=== PATIENT | female | born 1995 | race Caucasian/White ===

== ENCOUNTER 2023-08-19 15:44 | Outpatient (AMB) | payer OTHER, SELFPAY ==
--- NOTE | 2023-08-19 15:51 | MHC.OFFVIS ---
Vital Signs 08/19/23 16:04 Height 5 ft Weight 165 lb BMI 32.2 Handedness Right Intake Visit Reasons: HOSPITAL CODER- xray Rt foot Intake Note: Jessica is a 28 year old female who presents today as a new patient for right foot pain. Patient reports she hit her foot on a metal spike used to hold tents down when she was walking past the tent. She expresses her pain is on top of her right foot. Occasionally she has pain with ambulation. She uses ice for relief in the moment. Allergies amoxicillin Allergy (Unknown, Verified 08/19/23 16:04) Hives HPI HPI HOSPITAL CODER- xray Rt foot: Details: Jessica is a 28 year old woman who presents with complaints of right foot pain Date of injury: 08/15/2023 She complains of pain to the top of her foot primarily when standing on the ball of her foot. She says she was walking and struck the dorsal aspect of her foot her foot against a metal peg holding the corner of a tent down. She is able to WBAT. 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 [facility] Social History (Updated 08/19/23 @ 16:08 by CARLY Gunderson) Alcohol intake: never Patient Tobacco Use Status: Never used Tobacco Current occupational status: employed Current occupation: technical support coordinator Review of Systems Const All systems reviewed & are unremarkable except as noted in HPI and below Physical Exam Vital Signs: BMI result Body Mass Index 32.2 Const General: cooperative, healthy appearing and no acute distress Orientation/consciousness: patient oriented x3 HEENT Head: Yes normocephalic and Yes atraumatic Eyes EOM: EOMs intact bilaterally Resp Effort & Inspection: normal respiratory effort and able to speak in complete sentences Cardio Jugular venous distension: no JVD Skin General skin exam: turgor normal Rashes: no rashes Neuro General: patient oriented x3 Extrem Other: Evaluation of Right foot: The patient is alert, oriented, and in no acute distress Mildly Tender over the more distal aspect of the 2nd & 3rd metatarsal shafts No tenderness over the TMT joints Good range of motion of all of the toes through flexion and extension. Good ankle range of motion without pain. She can bear weight without significant discomfort. She has some mild swelling on the dorsum of her foot. No lacerations or evidence of open injury. Radiographs: 3 views of the right foot, while WB, were taken and viewed by me today in clinic. They show no fractures or dislocations. No evidence of disruption at the MTP joints. Psych Appearance: grossly normal Affect: normal affect Attitude: cooperative Assessment & Plan Assessment & Plan (1) Right foot pain: Code(s): M79.671 - Pain in right foot Category: Medical (2) Contusion of right foot: Code(s): S90.31XA - Contusion of right foot, initial encounter Category: Medical Plan Assessment & Plan: 1. Right foot contusion, S/P kicking a tent peg with the dorsum of her foot DOI: 08/15/2023 She is doing well overall, and is able to WBAT with only mild discomfort No evidence of fractures or dislocations I recommend stiffer and more supportive footwear for the next few weeks, if possible. I offered her a stiff sole shoe and she declined, saying she will wear her own She should modify her activities as tolerated for the next few weeks, and limit or avoid any activities which cause her worsening pain She has happy with the current plan She can follow up prn Scribed for Stefanie Isbell MD by Rosales Metz, hospital medical biller, on 08/19/23 at 4:20 PM, EST. Orders: Orders XR foot RT min 3V Today M79.671 - Pain in right foot Coding Level of Care Code New Pt Level 3 (03078) Diagnoses Right foot pain M79.671 Contusion of right foot S90.31XA
[2023-08-19 16:04] VITALS: BMI 32.2
== END 2023-08-19 16:24 | disposition home or self-care (01) ==
LOC: HO.HOS 15:44
PROVIDERS: Visit Provider Orthopaedic Surgery
DX: M79.671 Pain in right foot (principal); S90.31XA Contusion of right foot, initial encounter
CPT/HCPCS: 99202

== ENCOUNTER 2023-08-19 15:44 | Outpatient (REF) | payer OTHER, SELFPAY ==
--- NOTE | ~2023-08-19 | XR_ITS ---
EXAMINATION: XR FOOT, RIGHT CLINICAL INFORMATION: Pain in right foot, weightbearing. COMPARISON: None available. TECHNIQUE: AP, lateral, and oblique views of the right foot. FINDINGS: Bone mineralization is normal. Minimal degenerative changes with joint space narrowing and hypertrophic change in the first metatarsophalangeal joint. Alignment maintained. No acute displaced fracture appreciated. XR/XR foot RT min 3V IMPRESSION: Minimal degenerative changes in the first metatarsophalangeal joint.
== END 2023-08-19 15:45 | disposition home or self-care (01) ==
LOC: HO.HOSX 15:44
PROVIDERS: Visit Provider Orthopaedic Surgery
DX: M79.671 Pain in right foot (principal); S90.31XA Contusion of right foot, initial encounter
CPT/HCPCS: 73630

== ENCOUNTER 2025-02-08 10:12 | Outpatient (REF) | payer OTHER, SELFPAY ==
--- NOTE | 2025-02-08 10:18 | EMG_ITS ---
Chief complaint: She has been having on and off bilateral hand pain and numbness, would wake up with the symptoms in the morning but can occur anytime during the day. Reason for referral: Evaluate for Carpal Tunnel Syndrome Referred by: Jonathan CM Procedure done: Bilateral upper extremities NCS/EMG Precautions and/or limitations: None The limb temperature was monitored continuously and remained between 32-36 degrees C during the performance of the NCS. Nerve Conduction Studies Anti Sensory Summary Table ?Stim Site NR Onset (ms) Norm Onset (ms) Peak (ms) Norm Peak (ms) O-P Amp (?V) Norm O-P Amp Site1 Site2 Delta-0 (ms) Dist (cm) Maurice (m/s) Norm Maurice (m/s) Left Median Anti Sensory (2nd Digit) Wrist ? 2.5 3.2 <3.6 55.2 >10 Wrist 2nd Digit 2.5 14.0 56 Right Median Anti Sensory (2nd Digit) Wrist ? 2.4 3.1 <3.6 56.5 >10 Wrist 2nd Digit 2.4 14.0 58 Left Ulnar Anti Sensory (5th Digit) Wrist ? 2.2 2.7 <3.7 22.4 >15.0 Wrist 5th Digit 2.2 14.0 64 Right Ulnar Anti Sensory (5th Digit) Wrist ? 2.3 2.8 <3.7 25.5 >15.0 Wrist 5th Digit 2.3 14.0 61 Motor Summary Table ?Stim Site NR Onset (ms) Norm Onset (ms) O-P Amp (mV) Norm O-P Amp iAmp (mV) Amp (1st) (%) Site1 Site2 Delta-0 (ms) Dist (cm) Maurice (m/s) Norm Maurice (m/s) Left Median Motor (Abd Poll Brev) Wrist ? 3.4 <3.9 10.0 >4.5 11.5 100.0 Elbow Wrist 3.2 19.0 59 >45 Elbow ? 6.6 11.0 12.7 110.0 Right Median Motor (Abd Poll Brev) Wrist ? 3.6 <3.9 9.5 >4.5 10.9 100.0 Elbow Wrist 3.3 18.0 55 >45 Elbow ? 6.9 8.5 10.2 89.5 Left Ulnar Motor (Abd Dig Minimi) Wrist ? 2.3 <3.0 7.6 >5 8.2 100.0 B Elbow Wrist 2.8 16.5 59 >45 B Elbow ? 5.1 7.0 7.7 92.1 A Elbow B Elbow 1.5 10.0 67 >45 A Elbow ? 6.6 6.8 7.6 89.5 Right Ulnar Motor (Abd Dig Minimi) Wrist ? 2.3 <3.0 8.8 >5 9.7 100.0 B Elbow Wrist 3.2 18.0 56 >45 B Elbow ? 5.5 8.5 9.6 96.6 A Elbow B Elbow 1.7 10.0 59 >45 A Elbow ? 7.2 8.1 9.5 92.0 Comparison Summary Table ?Stim Site NR Peak (ms) Norm Peak (ms) P-T Amp (?V) Site1 Site2 Delta-P (ms) Norm Delta (ms) Left Median/Radial Dig I Comparison (Digit 1 - 10cm) Median ? 2.8 <2.9 102.9 Median Radial 0.6 Radial ? 2.2 <2.8 39.2 Right Median/Radial Dig I Comparison (Digit 1 - 10cm) Median ? 2.4 <2.9 109.9 Median Radial 0.2 Radial ? 2.2 <2.8 25.3 EMG ?Side Muscle Nerve Root Ins Act Fibs Psw Amp Dur Poly Recrt Int Pat Comment Right 1stDorInt Ulnar C8-T1 Nml Nml Nml Nml Nml 0 Nml Complete Right FlexCarRad Median C6-7 Nml Nml Nml Nml Nml 0 Nml Complete Right Biceps Musculocut C5-6 Nml Nml Nml Nml Nml 0 Nml Complete Right Triceps Radial C6-7-8 Nml Nml Nml Nml Nml 0 Nml Complete Right Deltoid Axillary C5-6 Nml Nml Nml Nml Nml 0 Nml Complete Left 1stDorInt Ulnar C8-T1 Nml Nml Nml Nml Nml 0 Nml Complete Left FlexCarRad Median C6-7 Nml Nml Nml Nml Nml 0 Nml Complete Left Biceps Musculocut C5-6 Nml Nml Nml Nml Nml 0 Nml Complete Left Triceps Radial C6-7-8 Nml Nml Nml Nml Nml 0 Nml Complete Left Deltoid Axillary C5-6 Nml Nml Nml Nml Nml 0 Nml Complete FINDINGS: Interlatency difference between left median radial sensory nerves was 0.6. 0.2 on the right side. Otherwise, all other motor and sensory nerves tested showed normal latencies, amplitudes and conduction velocities. Concentric needle EMG was performed in selected muscles of the bilateral upper extremities. Study did not reveal signs of electric abnormalities as shown in the table above. IMPRESSION: 1. This is a minimally abnormal study. 2. Perhaps left borderline median neuropathy at the wrist/Carpal Tunnel Syndrome. 3. No electrodiagnostic evidence for median neuropathy in the right side. 4. There is no electrodiagnostic evidence for ulnar neuropathy, brachial plexopathy, or cervical radiculopathy. CLINICAL COMMENT: Advised Jessica to wear wrist splints at night. Can repeat testing in 6-12 months if symptoms worsen or do not get better with conservative treatment. Thank you for your kind referral. Sis Stringer MD, PRIMITIVO Board Certified, [place] Board of Physical Medicine and Rehabilitation (ABPMR) Board Certified, [place] Board of Electrodiagnostic Medicine (ABEM) CODIN [phone] x 2 extremities MTDD
--- OUTSIDE RECORDS SUMMARY | 2025-02-08 12:32 | XMS_ITS | Clinical Summary ---
Author Organization [facility] Address [address] [place] [phone] Phone Care Team Providers Care Drive In Teller Name Role Phone Unavailable Primary Care Provider Unavailabl e Allergies Active Allergy Reactions Criticality Noted Date Comments Amoxicillin Hives Medications buPROPion (WELLBUTRIN) 75 MG tablet Take by mouth. 5 Active nortriptyline 10 MG/5ML solution Take by mouth. Taking 2 ml QD Active levonorgestrel 20 MCG/24HR IUD 1 each by Intrauterine route once. Done by Dr. Hines 7 Active Active Problems Problem Noted Date Diagnosed Date Anxiety disorder 07/04/2011 Assessment & Plan (03/05/2017 3:31 PM EST): Still seeing Dr. Nielsen for anxiety--not taking citalopram anymore; taking buproprion and nortriptyline daily; but prescribed ritalin for focusing issues to use as needed and was prescribed ativan as needed for anxiety Sees him every few months Immunizations Immunization Administration Dates Next Due DTaP 5 09/23/2001, 8,01/12/1997,11/10,1996 H1N1 12/14/2008 HPV, Quadrivalent 10/26/2013,07/08/2012,07/04/19 12 Hep A, ped/adol 05/04/2014,10/26/2013 Hep B, ped/adol 03/23/1997,1996,1996 Hib (HbOC) 10/02/1997, 7,1996,08/30 IPV 09/23/2001, 7,1996,08/30 Influenza Split 01/09/2012,03/07/2010 Influenza, injectable, quadrivalent 12/08/2017 Influenza, injectable, quadr ivalent, preservative free 12/18/2016,10/25/2015,11/09/2014,10/26 Influenza, injectable, trivalent 11/01/2010 MMR 10/16/2000,1996 Meningococcal Conj (Menactra) MCV4P 01/25/2015,0 09/19/2008 Tdap 09/19/2008 Varicella 06/22/2007,1996 Family History Medical History Relation Name Comments Arthritis Father Trell Multiple sclerosis Father Trell Heart attack Maternal Grandfather Kidney failure Maternal Grandmother Diabetes Mother Magdalena Hyperlipidemia Mother Magdalena Obesity Mother Magdalena Heart attack Paternal Grandfather Obesity Sister Relation Name Status Comments Father Trell Alive Father: Multipl e sclerosis, Migraines, psoriatic arthritis; [place] age 45 Maternal Grandfather Maternal Grandmother Mother Magdalena Alive Mother: Diabete s mellitus, Elevated cholesterol, Obesity Other No family histo ry of *CVA/Stroke, No family history of Thrombophilia, No family history of Dental caries, Family history of Asthma, Family history of *Thrombophilia, No family history of *Sudden /[place] under 55, No family history of CVA (Stroke), Family history of *Dental caries, Family history of *Heart Disease, Family history of Sudden /[place] under age 55 Paternal Grandfather Paternal Grandmother Alive Sister Alive Twin sister: Ob esity Social History Tobacco Use Types Packs/Day Years Used Date Smoking Tobacco: Never Smokeless Tobacco: Never Comments:Never smoker Comments Unknown Sex and Gender Information Value Date Recorded Sex Assigned at Not on file Legal Sex Female 5:17 PM EDT Gender Identity Not on file Sexual Orientation Not on file Last Filed Vital Signs Vital Sign Reading Time Taken Comments Blood Pressure 104/71 03/05/2017 3:43 PM EST Pulse 71 03/05/2017 3:43 PM EST Temperature 36.8 C (98.3 F) 03/05/2017 3:43 PM EST Respiratory Rate - - Oxygen Saturation - - Inhaled Oxygen Concentration - - Weight 70.4 kg (155 lb 3.2 oz) 03/05/2017 3:43 P M EST Height 154.3 cm (5' 0.75 ) 03/05/2017 3:43 PM ES T Body Mass Index 29.57 03/05/2017 3:43 PM EST Plan of Treatment Health Maintenance Due Date Last Done Comments Varicella Vaccines (2 of 2 - 2-dose childhood series) 09/14/2007 06/22/2007, 1996 DTaP,Tdap,and Td Vaccines (7 - Td or Tdap) 09/19/2018 09/19/2008, 09/23/2001, 10/02/1997, Additional history exists Influenza Vaccines (#1) 2024 12/09/19 18, 12/18/2016, 10/25/2015, Additional history exists COVID-19 Vaccine ( season) 2024 Hepatitis B Vaccines Completed 03/23/1997, 1996, 1996 HIB Vaccines Completed 10/02/1997, 12/25, 1996, Additional history exists MMR Vaccines Completed 10/16/2000, 1996 IPV Vaccines Completed 09/23/2001, 12/25, 1996, Additional history exists HPV Vaccines Completed 10/26/2013, 06/23, 07/04/2011 Hepatitis A Vaccines Completed 05/04/2014, 10/27/19 14 Meningococcal Vaccine Completed 01/25/2015, 009 Men B Vaccine Aged Out No longer elig ible based on patient's age to complete this topic Pneumococcal Vaccine Aged Out No long er eligible based on patient's age to complete this topic Procedures * Due to [place] MEPS Real-Time law, this organization might not be sharing sensitive test results. Procedure Name Priority Date/Time Associated Diagnosis Comments CHLAMYDIA AND GONORRHEA, AMPLIFIED Routine 03/05/2017 3:44 PM EST Screen for sexually transmitted diseases from Last 3 Months or Most Recently Relevant to Health Maintenance Results * Due to [place] MEPS Real-Time law, this organization might not be sharing sensitive test results. * Chlamydia and Gonorrhoea, Amplified (03/05/2017 3:44 PM EST) Chlamydia Trachomatis, DNA Probe NEGATIVE (NEG) [facility] Comment: No Chlamydia Trachomatis RNA detected in this patient's sample (REFERENCE RANGE/NORMAL VALUE: NOT DETECTED) Note: This test uses smasher- mediated amplification method to detect rRNA from C. Trachomatis URINE GC AMP PROBE NEGATIVE (NEG) [facility] Comment: No Neisseria Gonorrhoeae RNA detected in this patient's sample (REFERENCE RANGE/NORMAL VALUE: NOT DETECTED) NOTE: This test uses smasher-mediated amplification method to detect rRNA from N.Gonorrhoeae. A negative result does not preclude infection. In the case of a negative urine result, testing of an endocervical(female) or urethral (male) specimen is recommended if there is high clinical suspicion of infection. Due to very high sensitivity of Nucleic Acid Amplification Test, false positive results may occur. Therefore, specimen handling is extremely important. In patients in whom the disease is unlikely, additional sample for testing should be considered after an initial positive result. The performance characteristics of this test have not been evaluated in children. The Aptima Combo2 assay is not intended for the evaluation of suspected sexual abuse or for other medico-legal indications. The ordering provider should assess if the patient had consensual sex without risk of sexual abuse. Consult the [facility] if needed. Contact phone number . Therapeutic failure or success cannot be determined with the Aptima Combo2 assay since nucleic acid may persist following appropriate antimicrobial therapy. The Centers for Disease Control and Prevention (CDC) recommends confirmatory retesting using culture or a different nucleic acid amplification test when positive results occur, if indicated. Testing performed or reported by [facility], a Service of [facility], [address] [place] [address] [facility] [id number] Pete Arreaga MD, PhD, Communications Analyst Urine 03/05/2017 3:44 PM EST 03/06/2017 12:38 AM EST us Ashtyn Vaca MD LAB MICROBIOLOGY - GENERAL ORD ERABLES Final Result [facility] from Last 3 Months or Most Recently Relevant to Health Maintenance Insurance [facility]
--- OUTSIDE RECORDS SUMMARY | 2025-02-08 12:32 | XMS_ITS | Encounter Summary ---
Author Organization [facility] Address [address] [place] [phone] Phone Care Team Providers Care Grade School Teacher Name Role Phone Ashtyn Vaca MD Primary Care Provider Encounter Details Date Type Department Care Team (Late st Contact Info) Description 10/09/2016 Conversion Encounter [facility] [address] [place] [address] Social History Tobacco Use Types Packs/Day Years Used Date Smoking Tobacco: Never Comments:Never smoker Comments Unknown Sex and Gender Information Value Date Recorded Sex Assigned at Not on file Legal Sex Female 5:17 PM EDT Gender Identity Not on file Sexual Orientation Not on file documented as of this encounter Plan of Treatment Not on file documented as of this encounter Visit Diagnoses Not on filedocumented in this encounter Care Teams Grade School Teacher Relationship Specialty Start Date End Date Ashtyn Vaca MD [address] [place] [address] PCP - General 01/13/18 06/19/22 documented as of this encounter
--- OUTSIDE RECORDS SUMMARY | 2025-02-08 12:32 | XMS_ITS | Continuity of Care Document ---
Author Organization [facility] [address] [place] [address] Phone [phone] Problems Active Problems Provider Date Hypothyroidism Jeremías Zurita M.D. Onset: 08/2021 Chase thyroiditis Jeremías Zurita M.D. Onse t: 07/24/2022 Anxiety SOILA Jackson Onset: 2024 Social History Type Date Description Comments Sex Female Sex Unknown Tobacco Use Start: Unknown Never Smoked Cigarettes Smoking Status Reviewed: 10/11/24 Never Smoked Cigaret damian ETOH Use Never used alcohol Allergies and adverse reactions Active Allergies Criticality Reaction Severity Comments Date Amoxicillin Unable to assess criticality 11/29/2021 Medications Active Medications SIG Qnty Indications Order ing Provider Date Bupropion Hydrochloride ER (SR)150mg Tablets ER 12HR 1 by mouth qd Jeremías Zurita M.D. 07/24/2022 Buspirone HCL7.5mg Tablets Take halfTABLET bid Unknown 00 Albuterol Sulfate BXU496(90Base) mcg/Act Aerosol 2 puffs four times a day as needed Unknown History Medications Levothyroxine [id number] Tablets Take 1 Tablet By Mouth Daily 90tabs Lilly allen CNP 12/28/2024 - 01/13/2025 Vital Signs Date Vital Result Comment 01/13/2025 7:58am BP Systolic 120 mmHg BP Diastolic 80 mmHg Heart Rate 94 /min Height 60 inches 5'0 Weight 186.25 lb BMI (Body Mass Index) 36.4 kg/m2 Results Test Acquired Date Facility Test Result H/L Range Note TSH Rfx on Abnormal to Free T4 01/12/2025 [facility] TSH RFX On Abnormal To Free T4 30.000 uIU/mL High 0.450-4. 500 T4,Free (Direct) 1.18 ng/dL 0.82-1.7 7 TSH Rfx on Abnormal to Free T4 10/11/2024 [facility] TSH RFX On Abnormal To Free T4 7.270 uIU/mL High 0.450-4. 500 T4,Free (Direct) 1.75 ng/dL 0.82-1.7 7 TSH+Free T4 06/09/2024 [facility] TSH 13.800 uIU/mL High 0.450-4. 500 T4,Free(Direct) 1.39 ng/dL 0.82-1.7 7 TSH+Free T4 12/10/2023 [facility] TSH 23.800 uIU/mL High 0.450-4. 500 T4,Free(Direct) 1.04 ng/dL 0.82-1.7 7 TSH reflex to T4 09/24/2023 [facility] TSH Reflex To T4 0.269 uIU/mL Low 0.450-4. 500 Thyroxine (T4) 14.4 g/dL High 4.5-12.0 Written Authorization 09/24/2023 [facility] Written Authorization See Comment: 1 TSH+Free T4 09/24/2023 [facility] TSH 0.257 uIU/mL Low 0.450-4. 500 T4,Free(Direct) 1.91 ng/dL High 0.82-1.7 7 TSH With Reflex To FT4 03/09/2023 [facility] TSH With Reflex To FT4 <0.01 uIU/mL Low (0.4-4.2 ) Free T4 03/09/2023 [facility] Free T4 1.83 ng/dL High (0.70-1. 80) TSH With Reflex To FT4 08/15/2022 [facility] TSH With Reflex To FT4 3.33 uIU/mL (0.4-4.2 ) TSH 07/23/2022 [facility] TSH 7.93 uIU/mL High (0.4-4.2 ) TSH 11/12/2021 [facility] TSH 6.45 uIU/mL High (0.4-4.2 ) 1 Written Authorizatio n Received. Authorization received from Adwoa Driscoll for Link Request on 09-29-2023 Logged by Leslie Jimenez [employer] Description No Information Available Encounters Type Date Location Provider Dx Diagnosis Office Visit 01/13/2025 8:00a Main Office Lilly Santo CNP E03.9 Hypothyroidism, unspecified E06.3 Autoimmune thyroidit is Assessments Date Code Description Provider 01/13/2025 E03.9 Hypothyroidism, unspecified Lilly Santo CNP 01/13/2025 E06.3 Chase thyroiditis Lilly Santo CNP Plan of Treatment Future Appointment(s):* 05/19/2025 8:20 am - Lilly Santo CNP at Main Office 06/10/2024 - SOILA Jackson* E03.9 Hypothyroidism, unspecified * E06.3 Chase thyroiditis* New Labs:* TSH RFX On Abnormal To Free T4, Ordered: 06/10/24 Functional Status Description No Information Available Mental Status Description No Information Available Referrals Description No Information Available
--- OUTSIDE RECORDS SUMMARY | 2025-02-08 12:32 | XMS_ITS | Encounter Summary ---
Author Organization [facility] Address [address] [place] [address] Phone Care Team Providers Care Handle Bar Assembler Name Role Phone Ashtyn Vaca MD Primary Care Provider [phone] Encounter Details Date Type Department Care Team (Late st Contact Info) Description 02/28/2013 Documentation [facility] Family Medicine [address] [place] [address] Family Medicine, Physician [address] [place], [place] [id number] Social History Tobacco Use Types Packs/Day Years Used Date Smoking Tobacco: Never Assessed Comments Unknown Sex and Gender Information Value Date Recorded Sex Assigned at Not on file Legal Sex Female 5:17 PM EDT Gender Identity Not on file Sexual Orientation Not on file documented as of this encounter Plan of Treatment Not on file documented as of this encounter Visit Diagnoses Not on filedocumented in this encounter Care Teams Handle Bar Assembler Relationship Specialty Start Date End Date Ashtyn Vaca MD [address] [place] [address] [place] [address] PCP - General 01/13/18 06/19/22 documented as of this encounter
== END 2025-02-08 10:13 | disposition home or self-care (01) ==
LOC: HO.NEURO 10:12
DX: R20.2 Paresthesia of skin (principal); R20.0 Anesthesia of skin; M79.641 Pain in right hand; M79.642 Pain in left hand
CPT/HCPCS: 95886; 95911

== ENCOUNTER → 2025-02-08 10:18 | Outpatient (BNV) | payer OTHER, SELFPAY | PROVIDERS: Visit Provider Physical Medicine & Rehabilitation | DX: R20.0 Anesthesia of skin (principal) | CPT/HCPCS: 95886; 95911 ==

== ENCOUNTER 2025-02-22 10:03 | Outpatient (AMB) | payer OTHER, SELFPAY ==
--- NOTE | 2025-02-22 10:33 | MHC.OFFVIS ---
Vital Signs 02/22/25 10:34 Height 5 ft Weight 180 lb BMI 35.2 Intake Visit Reasons: OV- EMG review/ bilateral hands Intake Note: Jessica 29 yr old right hand dominant female presents today for her EMG review for bilateral hands numbness and tingling. States CTS started about 1 year ago and has worsen in the last 1-2 months. States she has symptoms daily, comes and goes depending on what she is doing. Denies injection to hands or any hand injury. Patient states left is worse. IMPRESSION: 1. This is a minimally abnormal study. 2. Perhaps left borderline median neuropathy at the wrist/Carpal Tunnel Syndrome. 3. No electrodiagnostic evidence for median neuropathy in the right side. 4. There is no electrodiagnostic evidence for ulnar neuropathy, brachial plexopathy, or cervical radiculopathy. CLINICAL COMMENT: Advised Jessica to wear wrist splints at night. Can repeat testing in 6-12 months if symptoms worsen or do not get better with conservative treatment. Allergies amoxicillin Allergy (Unknown, Verified 02/22/25 10:37) Hives HPI HPI OV- EMG review/ bilateral hands: Details: Jessica is a 29 year old right hand dominant woman who returns for a NCS review of her bilateral hand numbness. She complains of numbness in her bilateral median nerve distribution, L>R. She says she has some pain in her left hand at times as well. Symptoms intermittent, but daily, primarily at night or with activities. She finds limited relief from wearing wrist braces. She says this has been happening for some time but worsened in the last 1-2 months. She says she has a Thyroid condition which causes systemic inflammation. She says this has been managed better recently and this may be affecting her symptoms [facility] Surgical History (Updated 02/22/25 @ 10:38 by CARLY Nayak) [place] teeth removed S/P LASIK surgery Social History (Updated 02/22/25 @ 10:38 by CARLY Nayak) Alcohol intake: never Patient Tobacco Use Status: Never used Tobacco Current occupational status: employed Current occupation: care team coordinator scheduler/ rt hand Review of Systems Const All systems reviewed & are unremarkable except as noted in HPI and below Physical Exam Vital Signs: BMI result Body Mass Index 35.2 Const General: no acute distress and alert Orientation/consciousness: patient oriented x3 Neuro General: patient oriented x3 Extrem Other: Evaluation of Bilateral Upper Extremity: The patient is alert, oriented, and in no acute distress Neuro: Median, Ulnar, Radial nerves motor and sensory intact and sensation is normal to the tips of all digits No thenar or intrinsic wasting Good APB muscle belly firing and good finger cross Good ABduction & ADduction Vascular: Cap refill brisk ROM: She can make a fist and extend all her digits No locking or catching Nerve Conduction Study IMPRESSION: 1. This is a minimally abnormal study. 2. Perhaps left borderline median neuropathy at the wrist/Carpal Tunnel Syndrome. 3. No electrodiagnostic evidence for median neuropathy in the right side. 4. There is no electrodiagnostic evidence for ulnar neuropathy, brachial plexopathy, or cervical radiculopathy. CLINICAL COMMENT: Advised Jessica to wear wrist splints at night. Can repeat testing in 6-12 months if symptoms worsen or do not get better with conservative treatment. Thank you for your kind referral. Sis Stringer MD, PRIMITIVO 02/08/25 Psych Appearance: grossly normal Affect: normal affect Attitude: cooperative Assessment & Plan Assessment & Plan (1) Carpal tunnel syndrome of left wrist: Code(s): G56.02 - Carpal tunnel syndrome, left upper limb Category: Medical (2) Numbness and tingling in right hand: Code(s): R20.0 - Anesthesia of skin; R20.2 - Paresthesia of skin Category: Medical Plan Assessment & Plan: 1. Left carpal tunnel syndrome, early Symptoms intermittent, but daily, primarily at night I educated her about this condition I discussed operative and non-operative treatment options The patient would like to proceed with surgery Patient reports having a Thyroid condition which causes systemic inflammation. She says this has been managed better recently and this may be affecting her symptoms The risks and benefits of operative treatment were discussed with the patient and the patient wishes to proceed with surgery. These risks include, but are not limited to risk of damage to blood vessels, nerves, tendons, infection, recurrence, incomplete relief of preoperative symptoms, persistent pain, possible need for further surgery and the risks associated with regional blocks and anesthesia. The plan is to take the patient to the operating room sometime in the next few weeks for the following procedures: 1. Left carpal tunnel release, under local All of the preoperative paperwork including the consent was reviewed today. All the patient's questions were answered. The patient understands that they will be contacted by our care team coordinator scheduler soon to schedule this procedure She denies Diabetes, blood thinners, asthma, heart, lung, kidney issues 2. Right hand numbness In the median nerve distribution Symptoms intermittent, but daily, worse at night NCS negative for carpal tunnel syndrome No operative intervention indicated at this time I recommend a wrist brace at night if helpful If symptoms persist, consider repeat NCS in 6-12 months Scribed for Stefanie Isbell MD by Rosales Metz, medical accounting clerk, on 02/22/25 at 10:45 AM, EST. Coding Level of Care Code Est Pt Level 4 (77943) Diagnoses Carpal tunnel syndrome of left wrist G56.02 Numbness and tingling in right hand R20.0; R20.2
[2025-02-22 10:34] VITALS: BMI 35.2
--- OUTSIDE RECORDS SUMMARY | 2025-02-22 11:03 | XMS_ITS | Encounter Summary ---
Author Organization [facility] Address [address] [place] [phone] Phone Care Team Providers Care Restaurant Mgr Name Role Phone Ashtyn Vaca MD Primary Care Provider [phone] Encounter Details Date Type Department Care Team (Late st Contact Info) Description 10/09/2016 Conversion Encounter [facility] [address] [place] [address] Social History Tobacco Use Types Packs/Day Years [...] on filedocumented in this encounter Care Teams Restaurant Mgr Relationship Specialty Start Date End Date Asthyn Vaca MD [address] [place] [address] PCP - General 01/13/18 06/19/22 documented as of this encounter
--- OUTSIDE RECORDS SUMMARY | 2025-02-22 11:03 | XMS_ITS | Encounter Summary ---
Author Organization [facility] Address [address] [place] [address] Phone Care Team Providers Care Family Psychologist Name Role Phone Ashtyn Vaca MD Primary Care Provider [phone] Encounter Details Date Type Department Care Team (Late st Contact Info) Description 02/28/2013 Documentation [facility] Medicine [address] [place] [address] Family Medicine, Physician [address] [place] [id number] Social History Tobacco Use Types Packs/Day Years [...] on filedocumented in this encounter Care Teams Family Psychologist Relationship Specialty Start Date End Date Ashtyn Vaca MD [address] [place] [address] [place] [address] PCP - General 01/13/18 06/19/22 documented as of this encounter
--- OUTSIDE RECORDS SUMMARY | 2025-02-22 11:03 | XMS_ITS | Clinical Summary ---
Author Organization [facility] Address [address] [place] [phone] Phone Care Team Providers Care Senior Linux Systems Engineer Name Role Phone Unavailable Primary Care Provider [...] Father: Multipl e sclerosis, Migraines, psoriatic arthritis; [place] age 45 Maternal Grandfather Maternal Grandmother Mother Magdalena Alive Mother: Diabete s mellitus, Elevated cholesterol, Obesity Other No family histo ry of *CVA/Stroke, No family history of Thrombophilia, No family history of Dental caries, Family history of Asthma, Family history of *Thrombophilia, No family history of *Sudden /AK under 55, No family history of CVA (Stroke), Family history of *Dental caries, Family history of *Heart Disease, Family history of Sudden /AK under age 55 Paternal Grandfather Paternal Grandmother [...] complete this topic Procedures * Due to [place] [employer] law, this organization might not be sharing sensitive test results. Procedure Name Priority Date/Time Associated Diagnosis Comments CHLAMYDIA AND GONORRHEA, AMPLIFIED Routine 03/05/2017 3:44 PM EST Screen for sexually transmitted diseases from Last 3 Months or Most Recently Relevant to Health Maintenance Results * Due to [place] [employer] law, this organization might not be sharing sensitive test results. * Chlamydia and Gonorrhoea, Amplified (03/05/2017 3:44 PM EST) Chlamydia Trachomatis, DNA Probe NEGATIVE (NEG) [facility] Comment: No Chlamydia Trachomatis RNA detected in this patient's sample (REFERENCE RANGE/NORMAL VALUE: NOT DETECTED) Note: This test uses bus repair supervisor- mediated amplification method to detect rRNA from C. Trachomatis URINE GC AMP PROBE NEGATIVE (NEG) [facility] Comment: No Neisseria Gonorrhoeae RNA detected in this patient's sample (REFERENCE RANGE/NORMAL VALUE: NOT DETECTED) NOTE: This test uses bus repair supervisor-mediated amplification method to detect rRNA from N.Gonorrhoeae. [...] without risk of sexual abuse. Consult the [facility] if needed. Contact phone number . Therapeutic failure or success cannot be determined with the Aptima Combo2 assay since nucleic acid may persist following appropriate antimicrobial therapy. The Centers for Disease Control and Prevention (CDC) recommends confirmatory retesting using culture or a different nucleic acid amplification test when positive results occur, if indicated. Testing performed or reported by [facility], a Service of [facility], [address] [place] [address] [facility] [id number] Pete Arreaga MD, PhD, Research Administrator Urine 03/05/2017 3:44 PM EST 03/06/2017 12:38 AM EST us Ashtyn Vaca MD LAB MICROBIOLOGY - GENERAL ORD ERABLES Final Result [facility] from Last 3 Months or Most Recently Relevant to Health Maintenance Insurance [facility]
--- OUTSIDE RECORDS SUMMARY | 2025-02-22 11:03 | XMS_ITS | Continuity of Care Document ---
Author Organization [facility] [address] [place] [address] Phone [phone] Problems Active Problems Provider Date Hypothyroidism Jeremías [...] Take halfTABLET bid Unknown 00 Albuterol Sulfate [id number](90Base) mcg/Act Aerosol 2 puffs four times a day as needed Unknown History Medications Levothyroxine [id number] Tablets Take 1 Tablet By Mouth Daily [...] 7 TSH With Reflex To FT4 03/09/2023 [facility] TSH With Reflex To FT4 <0.01 uIU/mL Low (0.4-4.2 ) Free T4 03/09/2023 [facility] Free T4 1.83 ng/dL High (0.70-1. 80) TSH With Reflex To FT4 08/15/2022 [facility] TSH With Reflex To FT4 3.33 uIU/mL (0.4-4.2 ) TSH 07/23/2022 [facility] TSH 7.93 uIU/mL High (0.4-4.2 ) TSH 11/12/2021 [facility] TSH 6.45 uIU/mL High (0.4-4.2 ) 1 Written Authorizatio n Received. Authorization received from Adwoa Driscoll for Link Request on 09-29-2023 Logged by Leslie Jimenez [a]list games Description No Information Available Encounters Type Date [...]
== END 2025-02-22 11:06 | disposition home or self-care (01) ==
LOC: HO.HOS 10:04
PROVIDERS: Visit Provider Orthopaedic Surgery
DX: G56.02 Carpal tunnel syndrome, left upper limb (principal); R20.0 Anesthesia of skin; R20.2 Paresthesia of skin
CPT/HCPCS: 99214